=== PATIENT | female | born 1990 | race Caucasian/White ===

== ENCOUNTER 2016-12-21 18:41 | Emergency (ER) | payer MEDICAID ==
[~2016-12-21] VITALS: Ht 154.9 cm; Wt 56.2 kg
[2016-12-21 21:20] VITALS: BP 137/89
== END 2016-12-21 21:20 | disposition home or self-care (01) ==
LOC: ED 18:41
DX: S52.122A Displaced fracture of head of left radius, initial encounter for closed fracture (principal); F32.1 Major depressive disorder, single episode, moderate; Z79.3 Long term (current) use of hormonal contraceptives; V00.131A Fall from skateboard, initial encounter; Y93.51 Activity, roller skating (inline) and skateboarding; Y92.89 Other specified places as the place of occurrence of the external cause; Y99.8 Other external cause status